=== PATIENT | female | born 1965 | race Caucasian/White ===

== ENCOUNTER → 2016-03-13 | Outpatient (CLI) | payer OTHER ==
--- NOTE | 2016-03-15 08:33 | MM ---
Reason for exam: screening (asymptomatic). Last mammogram was performed 1 year and 10 months ago. History: Patient is postmenopausal. Physical Findings: A clinical breast exam by your physician is recommended on an annual basis and results should be correlated with mammographic findings. MG Screening Mammo w CAD Bilateral CC and MLO view(s) were taken. Prior study comparison: April 28, 2014, bilateral MG diagnostic mammo w CAD [facility]. December 25, 2012, bilateral digital screening mammo w/CAD. The breast tissue is heterogeneously dense. This may lower the sensitivity of mammography. Subtle scattered round and punctate calcifications in the right breast are unchanged. No significant changes when compared with prior studies. ASSESSMENT: Negative, BI-RAD 1 RECOMMENDATION: Routine screening mammogram of both breasts in 1 year.
== END | disposition home or self-care (01) ==
LOC: RADMAMWWP 16:35
PROVIDERS: ATTEND Pediatrics
DX: Z12.31 Encounter for screening mammogram for malignant neoplasm of breast (principal)

== ENCOUNTER → 2017-11-06 | Outpatient (CLI) | payer BC ==
--- NOTE | 2017-11-06 21:37 | CT ---
EXAMINATION TYPE: CT abdomen pelvis wo con DATE OF EXAM: 11/06/2017 HISTORY: lower abdominal pain, hx of endometriosis CT DLP: 591 mGycm. Automated Exposure Control for Dose Reduction was Utilized. TECHNIQUE: CT scan of the abdomen and pelvis is performed without oral or IV contrast. COMPARISON: NONE FINDINGS: Within the limitations of a non-contrast study, the following observations are made. LUNG BASES: No significant abnormality is appreciated. LIVER/GB: No significant abnormality is appreciated. PANCREAS: No significant abnormality is seen. SPLEEN: No significant abnormality is seen. ADRENALS: No significant abnormality is seen. KIDNEYS: No renal calculi or hydronephrosis is evident bilaterally. No intraluminal calculi are seen in poorly distended bladder. BOWEL: Evaluation of bowel suboptimal secondary to lack of enteric contrast. There is no suspicious s mall or large bowel dilatation. Mild wall thickening is seen near level of hepatic flexure, cannot ex clude a colitis at this level. Correlate clinically. Finding most likely product of poor distention. A nonabsorbed 7 mm ingested pill is still present near junction of left and sigmoid colon coronal laci ge 24. Slightly low-lying cecum into right pelvis is seen normal-appearing appendix is seen ascending from cecum best on coronal images. GENITAL ORGANS: Uterus is surgically absent or markedly atrophic in appearance. Pelvic phleboliths ar e present bilaterally. Ovaries are visualized and suspected surgically absent. LYMPH NODES: No greater than 1cm abdominal or pelvic lymph nodes are appreciated. OSSEOUS STRUCTURES: Within this vertebra superior anterior L4 endplate is present. Schmorl node super ior anterior L2 endplate is seen.. OTHER: No significant additional abnormality is seen. IMPRESSION: Possible mild colitis near hepatic flexure otherwise no acute finding identified.
== END ==
LOC: RADCTMAIN 17:00
PROVIDERS: ATTEND Pediatrics
DX: R10.9 Unspecified abdominal pain (principal); R39.89 Other symptoms and signs involving the genitourinary system; N83.209 Unspecified ovarian cyst, unspecified side; N80.9 Endometriosis, unspecified
CPT/HCPCS: 74176

== ENCOUNTER → 2018-03-20 | Outpatient (CLI) | payer OTHER ==
--- NOTE | 2018-03-20 15:59 | XR ---
EXAMINATION TYPE: XR lumbar spine 2 or 3V DATE OF EXAM: 03/20/2018 COMPARISON: Correlation CT 11/06/2017 HISTORY: 53-year-old female twisting injury, right leg numbness TECHNIQUE: 3 views FINDINGS: 5 lumbar type vertebral bodies. Limbus L4 vertebra. Facet arthropathy lower lumbar spine. Interval pino dy heights are preserved and alignment is maintained. Mild degenerative disc space narrowing througho ut. IMPRESSION: 1. 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 2. Facet arthropathy and mild multilevel degenerative disc disease. 3. No vertebral compression collapse or malalignment.
== END | disposition home or self-care (01) ==
LOC: RADXRMAIN 13:06
PROVIDERS: ATTEND Emergency Medicine
DX: M51.36 Other intervertebral disc degeneration, lumbar region (principal); M46.96 Unspecified inflammatory spondylopathy, lumbar region
CPT/HCPCS: 72100

== ENCOUNTER → 2018-03-30 | Outpatient (CLI) | payer OTHER ==
--- NOTE | 2018-03-30 17:43 | MR ---
EXAMINATION TYPE: MR lumbar spine wo con DATE OF EXAM: 03/30/2018 COMPARISON: X-ray 03/20/2018 HISTORY: Low back pain, Rt thigh numbness/weakness CONTRAST: 0 mL intravenous Gadavist. TECHNIQUE: Multiplanar, multisequence images of the lumbar spine were acquired. FINDINGS: L5-S1: Left paracentral disc bulge has mild anterior thecal sac compression. No AP spinal canal steno sis is present. Neural foramen are patent. L4-L5: Mild disc bulge is present with anterior thecal sac flattening. Increased signal on T2-weighte d increments is can be compatible with an annular tear. No AP spinal canal stenosis present. Neural f oramen are patent. Note is made of a limbus vertebra of L4. L3-L4: No significant disc bulge or disc herniation. No spinal canal stenosis. No foraminal stenosi s. L2-L3: No significant disc bulge or disc herniation. No spinal canal stenosis. No foraminal stenosi s. Mild facet hypertrophy is present with posterior lateral thecal sac contact. L1-L2: No significant disc bulge or disc herniation. No spinal canal stenosis. No foraminal stenosi s. T12-L1: No significant disc bulge or disc herniation. No spinal canal stenosis. No foraminal stenos is. Disc heights are preserved. Disc desiccation is present L3-4 L4-5 and L5-S1. Paraspinal musculature a ppears unremarkable IMPRESSION: 1. Left paracentral disc bulge L5-S1 with mild anterior thecal sac compression. 2. Mild disc bulge present L4-5 with mild anterior thecal sac flattening. Annular tear may be present at this level.
== END ==
LOC: RADMRIMAIN 06:58
PROVIDERS: ATTEND Emergency Medicine
DX: M51.27 Other intervertebral disc displacement, lumbosacral region (principal)
CPT/HCPCS: 72148

== ENCOUNTER → 2018-07-25 | Outpatient (CLI) | payer BC ==
--- NOTE | 2018-07-26 15:01 | MM ---
Reason for exam: screening (asymptomatic). Last mammogram was performed 2 years and 4 months ago. History: Patient is postmenopausal. Physical Findings: A clinical breast exam by your physician is recommended on an annual basis and results should be correlated with mammographic findings. MG Screening Mammo w CAD Bilateral CC and MLO view(s) were taken. Prior study comparison: March 13, 2016, bilateral MG screening mammo w CAD. April 28, 2014, bilateral MG diagnostic mammo w CAD [facility]. The breast tissue is heterogeneously dense. This may lower the sensitivity of mammography. No suspicious abnormality. No significant changes when compared with prior studies. ASSESSMENT: Negative, BI-RAD 1 RECOMMENDATION: Routine screening mammogram of both breasts in 1 year.
== END | disposition home or self-care (01) ==
LOC: RADMAMWWP 15:25
PROVIDERS: ATTEND Pediatrics
DX: Z12.31 Encounter for screening mammogram for malignant neoplasm of breast (principal)
CPT/HCPCS: 77067

== ENCOUNTER → 2020-04-19 | Outpatient (CLI) | payer BC ==
--- NOTE | 2020-04-19 14:47 | MM ---
Reason for exam: screening (asymptomatic). Last mammogram was performed 1 year and 9 months ago. History: Patient is postmenopausal. Physical Findings: A clinical breast exam by your physician is recommended on an annual basis and results should be correlated with mammographic findings. MG Screening Mammo w CAD Bilateral CC, MLO, and XCCL view(s) were taken. Prior study comparison: July 25, 2018, bilateral MG screening mammo w CAD. March 13, 2016, bilateral MG screening mammo w CAD. The breast tissue is heterogeneously dense. This may lower the sensitivity of mammography. There are benign appearing round calcifications bilaterally. Asymmetric breast tissue in the right breast is stable. There is no discrete abnormality. ASSESSMENT: Benign, BI-RAD 2 RECOMMENDATION: Routine screening mammogram of both breasts in 1 year.
== END ==
LOC: RADMAMWWP 12:49
PROVIDERS: ATTEND Pediatrics
DX: Z12.31 Encounter for screening mammogram for malignant neoplasm of breast (principal); Z78.0 Asymptomatic menopausal state
CPT/HCPCS: 77067

== ENCOUNTER → 2020-10-19 | Outpatient (CLI) | payer BC ==
--- NOTE | 2020-10-19 15:44 | US ---
EXAMINATION TYPE: US pelvic limited DATE OF EXAM: 10/19/2020 COMPARISON: NONE CLINICAL HISTORY: K41.91 Femoral hernia. Severe LLQ pain approximately x 1 week. Uterus removed per p atient history. TECHNIQUE: . Transabdominal sonographic images of the pelvis were acquired. Left Groin Ultrasound for Femoral Hernia: No Femoral hernia is seen with or without Valsalva Maneuver . Multiple left groin lymph nodes are seen at patient's area of pain with largest measuring1.4 x 0.3 x 0.5cm and noted medial to Left Common Femoral Vein. Full bladder is seen with normal appearing left ovary noted lateral to bladder. IMPRESSION: 1. Ultrasound inguinal region negative for any identification.
== END | disposition home or self-care (01) ==
LOC: RADUSWWP 14:26
PROVIDERS: ATTEND Pediatrics
DX: K41.91 Unilateral femoral hernia, without obstruction or gangrene, recurrent (principal)
CPT/HCPCS: 76857

== ENCOUNTER 2020-10-20 21:57 | Emergency (ER) | payer BC ==
[2020-10-20] MEDS ORDERED: SODIUM CHLORIDE 0.9% 1,000 ML IV STA (22:13)
--- NOTE | 2020-10-20 22:14 | ED ---
Abdominal Pain HPI - General Chief Complaint: Abdominal Pain Stated Complaint: Abd Pain Time Seen by Provider: 10/20/20 22:01 Source: patient, RN notes reviewed, old records reviewed Mode of arrival: ambulatory Limitations: no limitations - History of Present Illness Initial Comments: This is a 55-year-old female to the emergency department today. Patient Dese for evaluation regards to suprapubic, periumbilical abdominal pain recent colonoscopy no serious diabetes. No fevers, no travel show sick contacts patient states otherwise he is does not feel well. She has not enjoyed awaiting her belly is been feeling. Patient did have an outpatient ultrasound with no significant findings. No fevers no other complaints - Related Data Home Medications Medication Instructions Recorded Confirmed Levothyroxine Sodium 25 mcg PO DAILY 10/20/20 10/20/20 Omeprazole Magnesium [PriLOSEC OTC] 20 mg PO DAILY 10/20/20 10/20/20 Sucralfate [Carafate] 1 gm PO BID 10/20/20 10/20/20 traMADol HCL 50 mg PO BID 10/20/20 10/20/20 Allergies Allergy/AdvReac Type Severity Reaction Status Date / Time No Known Allergies Allergy Verified 10/20/20 22:21 Review of Systems ROS Statement: Those systems with pertinent positive or pertinent negative responses have been documented in the HPI. ROS Other: All systems not noted in ROS Statement are negative. Past Medical History Past Medical History: Thyroid Disorder Additional Past Medical History / Comment(s): chronic pain History of Any Multi-Drug Resistant Organisms: None Reported Past Surgical History: Hysterectomy Past Psychological History: No Psychological Hx Reported Smoking Status: Never smoker Past Alcohol Use History: None Reported Past Drug Use History: None Reported General Exam Limitations: no limitations General appearance: alert, in no apparent distress, anxious Head exam: Present: atraumatic, normocephalic, normal inspection Eye exam: Present: normal appearance, PERRL, EOMI. Absent: scleral icterus, conjunctival injection, periorbital swelling ENT exam: Present: normal exam, mucous membranes moist Neck exam: Present: normal inspection. Absent: tenderness, meningismus, lymphadenopathy Respiratory exam: Present: normal lung sounds bilaterally. Absent: respiratory distress, wheezes, rales, rhonchi, stridor Cardiovascular Exam: Present: normal rhythm, tachycardia, normal heart sounds. Absent: systolic murmur, diastolic murmur, rubs, gallop, clicks GI/Abdominal exam: Present: soft, normal bowel sounds. Absent: distended, tenderness, guarding, rebound, rigid Extremities exam: Present: normal inspection, full ROM, normal capillary refill. Absent: tenderness, pedal edema, joint swelling, calf tenderness Back exam: Present: normal inspection Neurological exam: Present: alert, oriented X3, CN II-XII intact Psychiatric exam: Present: normal affect, normal mood Skin exam: Present: warm, dry, intact, normal color. Absent: rash Course Vital Signs 10/20/20 10/21/20 21:59 00:02 Temperature 98.6 F 98.0 F Pulse Rate 118 H 82 Respiratory 20 16 Rate Blood Pressure 177/103 146/80 O2 Sat by Pulse 97 97 Oximetry - Reevaluation(s) Reevaluation #1: 10/21/20 01:01 Medical record is reviewed Prior ultrasound is reviewed Reevaluation #2: 10/21/20 01:02 Patient reevaluated with continued suprapubic abdominal pain Reevaluation #3: 10/21/20 01:02 Patient is informed results and questions are answered Medical Decision Making - Medical Decision Making 65-year-old with nonspecific abdominal pain, nonspecific pancreatitis. Patient encouraged liquid diet, progress, continue follow-up with primary care. Otherwise no recent fevers no other complaints. - Lab Data Result diagrams: 10/20/20 22:24 10/20/20 22:24 Lab Results 10/20/20 10/20/20 10/20/20 Range/Units 22:24 22:24 22:24 WBC 12.9 H (3.8-10.6) k/uL RBC 5.16 (3.80-5.40) m/uL Hgb 14.8 (11.4-16.0) gm/dL Hct 43.2 (34.0-46.0) % MCV 83.7 (80.0-100.0) fL MCH 28.7 (25.0-35.0) pg MCHC 34.3 (31.0-37.0) g/dL RDW 13.8 (11.5-15.5) % Plt Count 440 (150-450) k/uL MPV 7.0 Neutrophils % 56 % Lymphocytes % 36 % Monocytes % 5 % Eosinophils % 1 % Basophils % 1 % Neutrophils # 7.2 (1.3-7.7) k/uL Lymphocytes # 4.6 (1.0-4.8) k/uL Monocytes # 0.6 (0-1.0) k/uL Eosinophils # 0.1 (0-0.7) k/uL Basophils # 0.1 (0-0.2) k/uL Sodium 137 (137-145) mmol/L Potassium 4.4 (3.5-5.1) mmol/L Chloride 103 (98-107) mmol/L Carbon Dioxide 24 (22-30) mmol/L Anion Gap 10 mmol/L BUN 22 H (7-17) mg/dL Creatinine 0.81 (0.52-1.04) mg/dL Est GFR (CKD-EPI)AfAm >90 (>60 ml/min/1.73 sqM) Est GFR (CKD-EPI)NonAf 82 (>60 ml/min/1.73 sqM) Glucose 122 H (74-99) mg/dL Calcium 9.7 (8.4-10.2) mg/dL Total Bilirubin 0.5 (0.2-1.3) mg/dL AST 46 H (14-36) U/L ALT 75 H (4-34) U/L Alkaline Phosphatase 90 (38-126) U/L Total Protein 7.4 (6.3-8.2) g/dL Albumin 4.3 (3.5-5.0) g/dL Amylase 96 (30-110) U/L Lipase 886 H (23-300) U/L Urine Color Light Yellow Urine Appearance Clear (Clear) Urine pH 6.0 (5.0-8.0) Ur Specific [place] >1.050 H (1.001-1.035) Urine Protein Negative (Negative) Urine Glucose (UA) Negative (Negative) Urine Ketones Negative (Negative) Urine Blood Negative (Negative) Urine Nitrite Negative (Negative) Urine Bilirubin Negative (Negative) Urine Urobilinogen <2.0 (<2.0) mg/dL Ur Leukocyte Esterase Negative (Negative) - Radiology Data Radiology results: report reviewed (CT head and pelvis and ultrasound gallbladder negative for acute disease), image reviewed Disposition Clinical Impression: Abdominal pain, Pelvic pain, Pancreatitis Disposition: HOME SELF-CARE Condition: Good Instructions (If sedation given, give patient instructions): Pelvic Pain in Women (ED), Pancreatitis (ED) Is patient prescribed a controlled substance at d/c from ED?: No Referrals: Librado Medina MD [Primary Care Provider] - 1-2 days
[2020-10-20 22:47] LABS: Basophils # (A) 0.1 k/uL (0-0.2); Basophils % (A) 1 %; Eosinophils # (A) 0.1 k/uL (0-0.7); Eosinophils % (A) 1 %; HCT 43.2 % (34.0-46.0); HGB 14.8 gm/dL (11.4-16.0); Lymphocytes # (A) 4.6 k/uL (1.0-4.8); Lymphocytes % (A) 36 %; MCH 28.7 pg (25.0-35.0); MCHC 34.3 g/dL (31.0-37.0); MCV 83.7 fL (80.0-100.0); Monocytes # (A) 0.6 k/uL (0-1.0); Monocytes % (A) 5 %; Neutrophils # (A) 7.2 k/uL (1.3-7.7); Neutrophils % (A) 56 %; Platelet Count 440 k/uL (150-450); RBC 5.16 m/uL (3.80-5.40); RDW 13.8 % (11.5-15.5); WBC 12.9 k/uL (3.8-10.6)
--- NOTE | 2020-10-20 22:58 | CT ---
EXAMINATION TYPE: CT abdomen pelvis w con DATE OF EXAM: 10/20/2020 COMPARISON: 11/06/2017 HISTORY: LLQ pain CT DLP: 763.1 mGycm Automated exposure control for dose reduction was used. CONTRAST: Performed with IV Contrast, patient injected with 100 mL of Isovue 300. Lung bases are clear. There is no pleural effusion. Heart size is normal. There is no pericardial eff usion. There is decreased density in the liver consistent with fatty infiltration. Spleen is intact. Stomach is intact. There is no pancreatic mass. Gallbladder appears normal. There is no adrenal mass. Kidneys have normal size. There is small left renal parapelvic cysts. There is no hydronephrosis. Ureters are not dilated. There is no retroperitoneal adenopathy. Bladder diste nds smoothly. There is no inguinal hernia. There is no free fluid in the pelvis. There is hysterectom y. There is no sign of a pelvic mass. Lumbar vertebra have normal alignment. Disc spaces are fairly n ormal. There is no compression fracture. Bony pelvis appears intact. Appendix is posterior and appears normal. There is no mesenteric edema. There is no ascites or free a ir. There is no sign of a bowel obstruction. IMPRESSION: There is mild fatty infiltration of the liver. No acute abnormality of the abdomen pelvis. No adverse change compared to old exam. I do not see a cause for left lower quadrant pain.
[2020-10-20 22:59] LABS: ALT 75 U/L (4-34); African American GFR (CKD) >90 (>60 ml/min/1.73 sqM); Albumin 4.3 g/dL (3.5-5.0); Amylase 96 U/L (30-110); Anion Gap 10 mmol/L; Blood Urea Nitrogen 22 mg/dL (7-17); Calcium 9.7 mg/dL (8.4-10.2); Carbon Dioxide 24 mmol/L (22-30); Chloride 103 mmol/L (98-107); Glucose 122 mg/dL (74-99); Lipase 886 U/L (23-300); Non-African American GFR(CKD) 82 (>60 ml/min/1.73 sqM); Sodium 137 mmol/L (137-145); Total Bilirubin 0.5 mg/dL (0.2-1.3); Total Protein 7.4 g/dL (6.3-8.2)
[2020-10-20 23:01] LABS: AST 46 U/L (14-36); Potassium 4.4 mmol/L (3.5-5.1)
[2020-10-20 23:02] LABS: Alkaline Phosphatase 90 U/L (38-126)
--- NOTE | 2020-10-21 00:13 | US ---
EXAMINATION TYPE: US gallbladder DATE OF EXAM: 10/21/2020 COMPARISON: CT 10/20/2020 CLINICAL HISTORY: pain. EXAM MEASUREMENTS: Liver Length: 15.5 cm Gallbladder Wall: 0.2 cm CBD: 0.5 cm Right Kidney: 10.8 x 3.8 x 4.0 cm Pancreas: Obscured by bowel gas Liver: Increased attenuation, decreased visualization of vessels suggestive of fatty infiltrate Gallbladder: wnl Evidence for sonographic Roach's sign: No CBD: wnl as visualized, distal portion is obscured by bowel gas Right Kidney: No hydronephrosis or masses seen IMPRESSION: Negative exam. No gallstones or dilated ducts.
[2020-10-21 00:24] LABS: Appearance,Urine Clear (Clear); Bilirubin,Urine Negative (Negative); Blood,Urine Negative (Negative); Color,Urine Light Yellow; Glucose,Urine (UA) Negative (Negative); Ketones,Urine Negative (Negative); Leukocyte Esterase,Urine Negative (Negative); Nitrite,Urine Negative (Negative); Protein,Urine Negative (Negative); Urobilinogen,Urine <2.0 mg/dL (<2.0)
[2020-10-21 00:27] LABS: Specific Gravity,Urine >1.050 (1.001-1.035)
[2020-10-21 00:29] VITALS: TEMP 98
[2020-10-21 01:18] VITALS: BP 135/71; PULSE 78; RESP 18
== END 2020-10-21 01:10 | disposition home or self-care (01) ==
LOC: EC 21:57
DX: K85.90 Acute pancreatitis without necrosis or infection, unspecified (principal); R10.2 Pelvic and perineal pain; R10.33 Periumbilical pain; E07.9 Disorder of thyroid, unspecified; Z79.890 Hormone replacement therapy
CPT/HCPCS: 96360; 99284; 36415; 80053; 82150; 83690; 85025; 74177; Q9967; 76705; 81003

== ENCOUNTER 2021-06-07 07:41 | Day surgery (SDC) | payer BC ==
[2021-06-03 13:27] VITALS: BMI 24.2
[~2021-06-07 07:41] MED LIST: ACETAMINOPHEN TAB 500 MG TAB PO PRN; DEXAMETHASONE SOD PHOSPHATE 4 MG/ML 1 ML VIAL IV ONE; HEPARIN SODIUM,PORCINE/PF 5,000 UNIT/0.5 ML SYRINGE SQ PRN; LACTATED RINGERS 1,000 ML IV SCH; LIDOCAINE 1% (10MG/ML) FOR IV START INTRADERMA PRN; METOCLOPRAMIDE 5 MG/ML 2 ML VIAL IVP PRN; MIDAZOLAM 2 MG/2 ML VIAL IV PRN; ONDANSETRON 4 MG/2 ML VIAL IVP ONE; SCOPOLAMINE 1 MG/72 HR PATCH TRANSDERM ONE
[2021-06-07] MEDS ORDERED: ACETAMINOPHEN TAB 500 MG TAB ONE (08:29)
[2021-06-07] MEDS ORDERED: HEPARIN SODIUM,PORCINE/PF 5,000 UNIT/0.5 ML SYRINGE SQ ONE (08:29)
--- NOTE | 2021-06-07 08:55 | P.GSHP ---
History of Present Illness H&P Date: 06/07/21 Chief Complaint: Right upper quadrant pain This a 56-year-old female who presents today for laparoscopic cholecystectomy. Patient's had complaints of right quadrant pain. Her recent HIDA scan shows abnormal ejection fraction consistent with biliary dysfunction. Past Medical History Past Medical History: GERD/Reflux, Thyroid Disorder Additional Past Medical History / Comment(s): Chronic pain (deep inside buttocks since hemorrhoidectomy). History of Any Multi-Drug Resistant Organisms: None Reported Past Surgical History: Hysterectomy Additional Past Surgical History / Comment(s): Hemorrhoidectomy. Partial Hysterectomy. Laproscopy for Endometriosis. Colonoscopy. EGD. Past Anesthesia/Blood Transfusion Reactions: No Reported Reaction Past Psychological History: No Psychological Hx Reported Smoking Status: Never smoker Past Alcohol Use History: None Reported Past Drug Use History: None Reported - Past Family History Sister(s) Family Medical History: Cancer Medications and Allergies Home Medications Medication Instructions Recorded Confirmed Type Levothyroxine Sodium 25 mcg PO QAM 10/20/20 06/07/21 History Omeprazole Magnesium [PriLOSEC OTC] 20 mg PO QAM 10/20/20 06/07/21 History traMADol HCL 50 mg PO BID 10/20/20 06/07/21 History Allergies Allergy/AdvReac Type Severity Reaction Status Date / Time No Known Allergies Allergy Verified 06/07/21 08:21 Surgical - Exam Vital Signs Temp Pulse Resp BP Pulse Ox 98.1 F 88 16 150/84 99 06/07/21 08:19 06/07/21 08:19 06/07/21 08:19 06/07/21 08:19 06/07/21 08:19 - General well developed, well nourished, no distress - Eyes PERRL - ENT normal pinna - Neck no masses - Respiratory normal expansion - Cardiovascular Rhythm: regular - Abdomen Abdomen: soft, non tender Assessment and Plan Assessment: Right upper quadrant pain Chronic was placed We'll perform laparoscopic cholecystectomy
[2021-06-07] MEDS ORDERED: NEOSTIGMINE 1 MG/ML 10 ML VIAL ONE (09:05)
[2021-06-07] MEDS ORDERED: LIDOCAINE 1% INJ 10MG/ML (20 ML MDV) ONE (09:05)
[2021-06-07] MEDS ORDERED: SUCCINYLCHOLINE CHLORIDE 100 MG/5 ML SYR IV ONE (09:05)
[2021-06-07] MEDS ORDERED: PROPOFOL 10 MG/ML 20 ML VIAL IV ONE (09:05)
[2021-06-07] MEDS ORDERED: GLYCOPYRROLATE 0.2 MG/ML 2 ML VIAL ONE (09:05)
[2021-06-07] MEDS ORDERED: fentaNYL (PF) 50 MCG/ML 2 ML AMP ONE (09:05)
[2021-06-07] MEDS ORDERED: MIDAZOLAM 2 MG/2 ML VIAL ONE (09:05)
[2021-06-07] MEDS ORDERED: ROCURONIUM 10 MG/ML (5 ML VIAL) IV ONE (09:05)
[2021-06-07] MEDS ORDERED: BUPIVACAINE (PF) 0.25% 30 ML VIAL SQ ONE ×2 (09:08→09:27)
--- NOTE | 2021-06-07 09:47 | P.OP ---
Date of Procedure: 06/07/21 Preoperative Diagnosis: Cholecystitis Postoperative Diagnosis: Cholecystitis Procedure(s) Performed: Laparoscopic cholecystectomy Anesthesia: [place] Surgeon: Michael Hernandez Estimated Blood Loss (ml): 5 Pathology: other (Gallbladder) Condition: stable Disposition: PACU Description of Procedure: The patient was placed on the operating table. The patient received a general endotracheal tube anesthesia. The patients abdomen was prepped and draped in the usual sterile fashion. Through an infraumbilical stab incision, the fascia of the anterior abdominal wall was grasped with a pair of Kochers and then the Veress needle was placed in the peritoneal cavity. Position of the Veress needle was confirmed with positive drop test. The abdomen was then insufflated. After adequate insufflation, the 10 mm trocar was placed in the peritoneal cavity. Following this the laparoscope was placed in the peritoneal cavity. The patient was placed in the head-up, right side up position and then a 5 mm trocar was placed in the right lateral and right subcostal position under direct visualization. A 8 mm trocar was placed in the epigastric position. The gallbladder was grasped in the fundus and infundibulum. Traction on the gallbladder was placed in the lateral and the cephalad positions. The triangle of Calot was visualized.. The cystic duct was bluntly dissected until the union of the cystic duct and common bile duct was seen. A critical view of safety was achieved. The cystic duct was then divided and sealed with the Harmonic scissors. A PDS Endoloop was then placed throughout the cystic duct stump. The cystic artery divided and sealed with the Harmonic scissors. The gallbladder was then removed from the liver bed using Harmonic scissors. The gallbladder was then extracted through the epigastric port site. Operative field was checked for any bleeding spots and Harmonic scissors was used to coagulate the liver bed. The abdomen was irrigated. The trocars were removed. The skin was closed using interrupted 3-0 Vicryl suture. Dermabond dressing were applied. The patient tolerated the procedure well.
[2021-06-07 09:54] VITALS: TEMP 97
[2021-06-07] MEDS ORDERED: KETOROLAC 15 MG/ML 1 ML VIAL IVP ONE (10:05)
[2021-06-07] MEDS: HYDROmorphone 0.5 MG/0.5 ML SYRINGE IVP PRN ×2 (10:07→10:25)
[2021-06-07] MEDS ORDERED: LACTATED RINGERS 1,000 ML IV ONE (10:26)
[2021-06-07 10:57] VITALS: RESP 20
[2021-06-07 11:32] VITALS: BP 129/86; PULSE 79
== END 2021-06-07 12:15 | disposition home or self-care (01) ==
LOC: OR 07:41
PROVIDERS: ATTEND Surgery
DX: K81.9 Cholecystitis, unspecified (principal); K21.9 Gastro-esophageal reflux disease without esophagitis; G89.29 Other chronic pain
CPT/HCPCS: 47562; 88304; 88313; J2250; J1100; J2710; J0690; J2405; J2001; J3010; J1885; J0330; J2704; J1170; J1644

== ENCOUNTER → 2021-07-26 | Outpatient (CLI) | payer BC ==
--- NOTE | 2021-07-26 21:41 | CT ---
EXAMINATION TYPE: CT abdomen pelvis w con DATE OF EXAM: 07/26/2021 COMPARISON: CT dated 10/20/2020 HISTORY: EPIGASTRIC PAIN CT DLP: 476.9 mGycm Automated exposure control for dose reduction was used. TECHNIQUE: Helical acquisition of images was performed from the lung bases through the pelvis. CONTRAST: Performed with Oral Contrast and with IV Contrast, patient injected with 70ml mL of Isovue 300. FINDINGS: LUNG BASES: No significant abnormality is appreciated. LIVER/GB: Previous cholecystectomy. No definite hepatic focal lesion. PANCREAS: No significant abnormality is seen. SPLEEN: No significant abnormality is seen. ADRENALS: No significant abnormality is seen. KIDNEYS: Unremarkable kidneys. FREE AIR: No free air is visualized. RETROPERITONEAL ADENOPATHY: None visualized REPRODUCTIVE ORGANS: Previous hysterectomy. No gross adnexal mass. URINARY BLADDER: No significant abnormality is seen. PELVIC ADENOPATHY: No pathologically enlarged lymph nodes. OSSEOUS STRUCTURES: No aggressive bone lesion. BOWEL: Unremarkable stomach, duodenum and small bowel. Mild nonspecific wall thickening of the colon . OTHER: Unremarkable abdominal aorta. No sizable ascites. IMPRESSION: No definitive acute abnormality or suspicious lesion seen in the abdomen or the pelvis. Incidental fi ndings as described above.
== END | disposition home or self-care (01) ==
LOC: RADCTMAIN 15:04
PROVIDERS: ATTEND Surgery
DX: R10.13 Epigastric pain (principal)
CPT/HCPCS: 74177; Q9967 ×2

== ENCOUNTER 2021-08-08 12:51 | Day surgery (SDC) | payer BC ==
[2021-08-05 08:27] VITALS: BMI 24.2
[~2021-08-08 12:51] MED LIST changes: -ACETAMINOPHEN TAB 500 MG TAB PO PRN; -DEXAMETHASONE SOD PHOSPHATE 4 MG/ML 1 ML VIAL IV ONE; -HEPARIN SODIUM,PORCINE/PF 5,000 UNIT/0.5 ML SYRINGE SQ PRN; -LIDOCAINE 1% (10MG/ML) FOR IV START INTRADERMA PRN; -METOCLOPRAMIDE 5 MG/ML 2 ML VIAL IVP PRN; -MIDAZOLAM 2 MG/2 ML VIAL IV PRN; -ONDANSETRON 4 MG/2 ML VIAL IVP ONE; -SCOPOLAMINE 1 MG/72 HR PATCH TRANSDERM ONE
[2021-08-08 13:13] VITALS: TEMP 98.3
[2021-08-08] MEDS ORDERED: LIDOCAINE 2% INJ 20 MG/ML (2 ML VIAL) ONE (14:27)
[2021-08-08] MEDS ORDERED: PROPOFOL 10 MG/ML 20 ML VIAL IV ONE (14:27)
--- NOTE | 2021-08-08 14:28 | P.GSHP ---
History of Present Illness H&P Date: 08/08/21 Chief Complaint: Gastritis This 56-year-old female 6 complaints of epigastric pain and GERD. Patient rents today for EGD for gastritis/GERD Past Medical History Past Medical History: GERD/Reflux, Thyroid Disorder Additional Past Medical History / Comment(s): Chronic pain (deep inside buttocks since hemorrhoidectomy). intermittant abdominal pain History of Any Multi-Drug Resistant Organisms: None Reported Past Surgical History: Cholecystectomy, Hysterectomy Additional Past Surgical History / Comment(s): Hemorrhoidectomy. Laproscopy for Endometriosis. Colonoscopy. EGD. Past Anesthesia/Blood Transfusion Reactions: No Reported Reaction Smoking Status: Never smoker - Past Family History Sister(s) Family Medical History: Cancer Medications and Allergies Home Medications Medication Instructions Recorded Confirmed Type Levothyroxine Sodium 25 mcg PO QAM 10/20/20 08/08/21 History Omeprazole Magnesium [PriLOSEC OTC] 20 mg PO QAM 10/20/20 08/08/21 History traMADol HCL 50 mg PO BID 10/20/20 08/08/21 History Allergies Allergy/AdvReac Type Severity Reaction Status Date / Time No Known Allergies Allergy Verified 08/08/21 13:16 Surgical - Exam Vital Signs Temp Pulse Resp BP Pulse Ox 98.3 F 103 H 18 170/99 97 08/08/21 13:10 08/08/21 13:10 08/08/21 13:10 08/08/21 13:10 08/08/21 13:10 - General well developed, well nourished, no distress - Eyes PERRL - ENT normal pinna, normal nares - Neck no masses - Respiratory normal expansion - Cardiovascular Rhythm: regular - Abdomen Abdomen: soft, non tender Assessment and Plan Assessment: GERD, gastroscope we'll perform EGD.
--- NOTE | 2021-08-08 14:32 | P.OP ---
Date of Procedure: 08/08/21 Preoperative Diagnosis: Gastritis Postoperative Diagnosis: Gastritis Procedure(s) Performed: EGD Anesthesia: MAC Surgeon: Michael Hernandez Pathology: other (Antrum) Condition: stable Disposition: PACU Description of Procedure: Patient's placed on the endoscopy table lateral position. She received IV sedat ion. The gastroscope placed oropharynx passed in the esophagus and stomach. Scope was placed through the pylorus. The first and second portion duodenum appeared normal. The scope was then brought back and the antrum this is minimally inflamed. A biopsies performed. The scope was then retroflexed and the remainder the stomach appeared normal. The GE junction was at 40 cm. The distal esophagus. Normal. The proximal esophagus appeared normal. Scope withdrawn for patient.
[2021-08-08 14:53] VITALS: BP 147/90; PULSE 75; RESP 16
== END 2021-08-08 15:08 | disposition home or self-care (01) ==
LOC: ORWHC2ENDO 12:51
PROVIDERS: ATTEND Surgery
DX: K29.50 Unspecified chronic gastritis without bleeding (principal); K21.9 Gastro-esophageal reflux disease without esophagitis; E07.9 Disorder of thyroid, unspecified; G89.29 Other chronic pain; Z90.49 Acquired absence of other specified parts of digestive tract; Z90.710 Acquired absence of both cervix and uterus; Z98.890 Other specified postprocedural states; Z80.9 Family history of malignant neoplasm, unspecified; Z79.890 Hormone replacement therapy; Z79.891 Long term (current) use of opiate analgesic; Z79.899 Other long term (current) drug therapy
CPT/HCPCS: 88305; 43239; J2704; J2001

== ENCOUNTER → 2023-04-02 | Outpatient (CLI) | payer BC ==
--- NOTE | 2023-04-03 22:24 | MM ---
Reason for Exam: Screening (asymptomatic). Last screening mammogram was performed 12 month(s) ago. Patient History: Menarche at age 14. First Full-Term at age 15. Hysterectomy at age 33. Postmenopausal. Risk Values: Nikia 5 year model risk: 0.9%. NCI Lifetime model risk: 5.0%. Prior Study Comparison: 07/25/2018 Bilateral Screening Mammogram, [facility]. 04/19/2020 Bilateral Screening Mammogram, [facility]. 03/30/2022 Bilateral MG 3D screening mammo w/cad, [facility]. Tissue Density: The breast tissue is heterogeneously dense. This may lower the sensitivity of mammography. Findings: Analyzed By CAD. There is no suspicious group of microcalcifications or new suspicious mass in either breast. Overall Assessment: Negative, BI-RAD 1 Management: Screening Mammogram of both breasts in 1 year. . Patient should continue monthly self-breast exams. A clinical breast exam by your physician is recommended on an annual basis. This exam should not preclude additional follow-up of suspicious palpable abnormalities. Note on Nikia scores and lifetime risk: 1. A Nikia score greater than 3% is considered moderate risk. If this is the case, consider specialist referral to assess eligibility for a risk reducing agent. 2. If overall lifetime risk for the development of breast cancer is 20% or higher, the patient may qualify for future screening with alternating mammogram and breast MRI. Electronically signed and approved by: Andrei Chandler M.D. Radiologist
== END | disposition home or self-care (01) ==
LOC: RADMAMWWP 15:33
PROVIDERS: ATTEND Pediatrics
DX: Z12.31 Encounter for screening mammogram for malignant neoplasm of breast (principal); Z78.0 Asymptomatic menopausal state
CPT/HCPCS: 77063; 77067

== ENCOUNTER → 2024-01-29 | Outpatient (CLI) | payer BC ==
--- NOTE | 2024-01-29 16:47 | XR ---
EXAMINATION TYPE: XR pelvis AP view DATE OF EXAM: 01/29/2024 4:06 PM COMPARISON: None. CLINICAL INDICATION: Female, 58 years old with history of M54.50 LOW BACK PAIN, UNSPECIFIED, TECHNIQUE: AP view(s) obtained. FINDINGS: Femoral heads articulate with the acetabulum. Sacroiliac joints and symphysis pubis are intact. No ac lexi fractures evident. Normal bowel gas is present. IMPRESSION: 1. No acute osseous abnormality AP pelvis [facility], , 01/29/2024 4:45 PM
--- NOTE | 2024-01-29 17:14 | XR ---
EXAMINATION TYPE: XR sacroiliac joint comp BILAT DATE OF EXAM: 01/29/2024 4:06 PM COMPARISON: None. CLINICAL INDICATION: Female, 58 years old with history of M54.50 LOW BACK PAIN, UNSPECIFIED, TECHNIQUE: 3 view(s) obtained. FINDINGS: Sacroiliac joints are patent. Some minimal vascular joint space phenomenon is present on the left. No acute fractures identified. No effusion is evident. IMPRESSION: 1. Mild degenerative changes left sacroiliac joint [facility], , 01/29/2024 5:12 PM
--- NOTE | 2024-01-29 17:22 | XR ---
EXAMINATION TYPE: XR lumbosacral spine min 4V DATE OF EXAM: 01/29/2024 4:06 PM COMPARISON: None. CLINICAL INDICATION: Female, 58 years old with history of M54.50 LOW BACK PAIN, UNSPECIFIED, TECHNIQUE: 3 view(s) obtained. FINDINGS: Limbus vertebra of L4 is present. Mild disc space narrowing is present L3-4 L4-5. No spondylolytic de fects are evident. No spondylolisthesis is evident. There are 5 lumbar-type vertebral bodies. The ped icles are intact. IMPRESSION: 1. No acute osseous abnormality lumbar spine. 2. Mild degenerative disc changes L3-4 L4-5. 3. Limbus vertebra, stable at L4 [facility], , 01/29/2024 5:20 PM
--- NOTE | 2024-01-29 19:21 | XR ---
EXAMINATION TYPE: XR sacrum coccyx DATE OF EXAM: 01/29/2024 4:06 PM COMPARISON: None. CLINICAL INDICATION: Female, 58 years old with history of M54.50 LOW BACK PAIN, UNSPECIFIED, TECHNIQUE: 3 view(s) obtained. FINDINGS: Sacroiliac joints appear normal. Sacrum appears intact. No sacral joint space has mild disc space lizz rowing. Postsurgical changes are within the pelvis. Coccyx appears unremarkable as visualized IMPRESSION: 1. No acute osseous abnormalities sacrum and coccyx [facility], , 01/29/2024 7:18 PM
== END | disposition home or self-care (01) ==
LOC: RADXRMAIN 15:39
PROVIDERS: ATTEND Pediatrics
DX: M51.26 Other intervertebral disc displacement, lumbar region (principal); M53.3 Sacrococcygeal disorders, not elsewhere classified
CPT/HCPCS: 72110; 72170; 72202; 72220

== ENCOUNTER 2024-06-12 08:00 | Day surgery (SDC) | payer BC ==
[2024-06-06 16:11] VITALS: BMI 22.8
[~2024-06-12 08:00] MED LIST changes: -LACTATED RINGERS 1,000 ML IV SCH; +LIDOCAINE 1% (10MG/ML) FOR IV START INTRADERMA PRN
[2024-06-12] MEDS: IV FLUID CONTINUATION 1,000 ML IV ONE (08:32)
[2024-06-12 08:36] VITALS: RESP 16; TEMP 97.5
[2024-06-12] MEDS: LACTATED RINGERS 1,000 ML IV SCH (08:39)
[2024-06-12] MEDS ORDERED: PROPOFOL 10 MG/ML 20 ML VIAL IV ONE (10:01)
--- NOTE | 2024-06-12 10:04 | P.GSHP ---
History of Present Illness H&P Date: 06/12/24 Chief Complaint: Screening colonoscopy Is a 59-year-old female presents today for screening colonoscopy. Patient denies any significant GI complaints. Past Medical History Past Medical History: GERD/Reflux, Hypertension, Thyroid Disorder Additional Past Medical History / Comment(s): Chronic pain (deep inside buttocks since hemorrhoidectomy). intermittant abdominal pain History of Any Multi-Drug Resistant Organisms: None Reported Past Surgical History: Cholecystectomy, Hysterectomy Additional Past Surgical History / Comment(s): Hemorrhoidectomy. Laproscopy for Endometriosis. Colonoscopy. EGD. Past Anesthesia/Blood Transfusion Reactions: No Reported Reaction Smoking Status: Former smoker - Past Family History Sister(s) Family Medical History: Cancer Medications and Allergies Home Medications Medication Instructions Recorded Confirmed Type Levothyroxine Sodium 25 mcg PO QAM 10/20/20 06/12/24 History Omeprazole Magnesium [PriLOSEC OTC] 20 mg PO QAM 10/20/20 06/12/24 History traMADol HCL 50 mg PO BID 10/20/20 06/12/24 History Cholecalciferol [Vitamin D3 (10 10 mcg PO DAILY 06/06/24 06/12/24 History Mcg = 400 Iu)] lisinopriL [Zestril] 5 mg PO DAILY 06/06/24 06/12/24 History Allergies Allergy/AdvReac Type Severity Reaction Status Date / Time No Known Allergies Allergy Verified 06/12/24 08:38 Surgical - Exam Vital Signs Temp Pulse Resp BP Pulse Ox 97.5 F L 82 16 138/84 98 06/12/24 08:34 06/12/24 08:34 06/12/24 08:34 06/12/24 08:34 06/12/24 08:34 - General well developed, well nourished, no distress - Eyes PERRL - ENT normal pinna - Neck no masses - Respiratory normal expansion - Cardiovascular Rhythm: regular - Abdomen Abdomen: soft, non tender Assessment and Plan Assessment: Will perform screening colonoscopy.
--- NOTE | 2024-06-12 10:18 | P.OP ---
Date of Procedure: 06/12/24 Preoperative Diagnosis: Anal fissure Postoperative Diagnosis: Anal fissure Tortuous colon Procedure(s) Performed: Colonoscopy Anesthesia: MAC Surgeon: Michael Hernandez Pathology: none sent Condition: stable Disposition: PACU Description of Procedure: The patient was placed on the endoscopy table in the lateral position. She received IV sedation. Digital rectal exams performed. There was some scarring at her anus related to previous anal fissure. The flexible colonoscope was then placed patient anus and passed with the colon. The colon was quite tortuous. The scope could not be advanced beyond the transverse colon secondary to tortuosity bowel. This point scope was withdrawn. The visualized colon appeared normal. The visualized transverse colon was normal at the descending colon appeared normal. The sigmoid colon appeared to be scarred. The scope was Ruback the rectum this appeared normal. Withdrawal patient. Patient was scheduled for a barium enema.
[2024-06-12 10:57] VITALS: BP 151/89; PULSE 77
--- NOTE | 2024-06-12 12:23 | XR ---
EXAMINATION TYPE: XR abdomen 1V DATE OF EXAM: 06/12/2024 COMPARISON: Pelvic radiograph 01/29/2024, CT abdomen and pelvis 07/26/2021 HISTORY: Prelim for barium enema, incomplete colonoscopy. TECHNIQUE: Single supine KUB image of the abdomen is obtained FINDINGS: Small bowel demonstrates no evidence for dilatation or air fluid levels. Large amount of gas identified throughout the colon from recent colonoscopy. No convincing evidence for pneumoperitoneum. Probable pelvic phleboliths. The lung bases are clear. The osseous structures are intact. IMPRESSION: Overall nonobstructive bowel gas pattern. Large amount of gas identified throughout the colon from re cent colonoscopy. [facility], , 06/12/2024 12:21 PM
== END 2024-06-12 11:20 | disposition home or self-care (01) ==
LOC: ORWHC2ENDO 08:00
PROVIDERS: ATTEND Surgery
DX: K60.2 Anal fissure, unspecified (principal); G89.29 Other chronic pain; I10 Essential (primary) hypertension; E07.9 Disorder of thyroid, unspecified; K21.9 Gastro-esophageal reflux disease without esophagitis; Z79.890 Hormone replacement therapy; Z87.891 Personal history of nicotine dependence; Z90.49 Acquired absence of other specified parts of digestive tract; Z90.710 Acquired absence of both cervix and uterus; Z79.899 Other long term (current) drug therapy
CPT/HCPCS: 74018; 45378; J2704

== ENCOUNTER → 2024-06-13 | Outpatient (CLI) | payer BC ==
--- NOTE | 2024-06-13 09:44 | FL ---
EXAMINATION TYPE: FL barium enema w air contrast DATE OF EXAM: 06/13/2024 9:40 AM COMPARISON: None. CLINICAL INDICATION: Female, 59 years old with history of Z12.11 Incomplete colonoscopy, TECHNIQUE: Single view of the abdomen. TECHNIQUE: Barium and air were instilled into the colon from the rectum to the cecum. Multiple spot and overhead images are obtained. FINDINGS: I do not see evidence for annular constricting lesion or fungating mass. No polypoid lesions are zoey ntified. Mucosal fold pattern has a normal appearance. No evidence for inflammatory bowel disease. Normal-appearing appendix which is retrocecal. No significant diverticular disease. IMPRESSION: No significant abnormality identified at this time. Symptoms persist consider direct visualization. [facility], , 06/13/2024 9:41 AM
== END | disposition home or self-care (01) ==
LOC: RADFLMAIN 07:44
PROVIDERS: ATTEND Surgery
DX: Z12.11 Encounter for screening for malignant neoplasm of colon (principal)
CPT/HCPCS: 74280